=== PATIENT | female | born 1985 | race Caucasian/White ===

== ENCOUNTER 2019-08-24 00:23 | Emergency (ER) | payer OTHER ==
[~2019-08-24] VITALS: Ht 170.2 cm; Wt 64.9 kg
[2019-08-24 00:30] VITALS: Ht 170.2 cm; Wt 64.9 kg
[2019-08-24 02:23] LABS: CALCIUM 8.5 mg/dL (8.5-10.1); CARBON DIOXIDE 28.4 mmol/L (21-32); CHLORIDE SERUM 103 mmol/L (98-107); CREATININE SERUM 0.8 mg/dL (0.6-1.0); GFR1 > 60 mL/min; GLUCOSE SERUM 108 mg/dL (74-106); POTASSIUM SERUM 3.6 mmol/L (3.5-5.1); SODIUM SERUM 139 mmol/L (136-145)
[2019-08-24 02:49] VITALS: BP 109/72
== END 2019-08-24 02:49 | disposition home or self-care (01) ==
LOC: ED 00:23
PROVIDERS: Emergency Medicine
DX: R07.89 Other chest pain (principal); R06.02 Shortness of breath
CPT/HCPCS: 36415; Q0092